=== PATIENT | female | born 1960 | race Caucasian/White ===

== ENCOUNTER 2018-11-03 06:07 | Day surgery (SDC) | payer OTHER ==
[2018-11-02 14:47] VITALS: BMI 34.3
[2018-11-03] MEDS ORDERED: Lidocaine 1% w/Epinephrine 1:100K 20 ML VIAL ONE (14:14)
[2018-11-03] MEDS ORDERED: Fentanyl 100 MCG/2 ML VIAL ONE (14:17)
[2018-11-03] MEDS ORDERED: Famotidine/PF 20 mg/2ml Vial ONE (14:17)
[2018-11-03] MEDS ORDERED: Midazolam HCl 2 mg/2 ml Vial ONE (14:17)
[2018-11-03] MEDS ORDERED: PROPOFOL 60 ML ONE (14:17)
[2018-11-03] MEDS ORDERED: Ferric Subsulfate (ASTRINGYN) 8 ML VIAL ONE (15:14)
--- NOTE | 2018-11-03 21:10 | OP ---
DATE OF PROCEDURE: 11/03/2018 PREOPERATIVE DIAGNOSIS: High-grade squamous intraepithelial lesion. POSTOPERATIVE DIAGNOSIS: High-grade squamous intraepithelial lesion. PROCEDURE PERFORMED: Cold knife cone. PICK UP ATTENDANT SURGEON: None. ANESTHESIA: TIVA. ESTIMATED BLOOD LOSS: 5 mL. IVF: 1 L of crystalloid. URINE OUTPUT: 25 mL of clear urine at the beginning. SPECIMEN: Cone biopsy marked at 12 o'clock. COMPLICATIONS: None. DRAINS: None. FINDINGS: Acetowhite staining after application of acetic acid around the squamocolumnar junction and going into the endocervical canal. At the conclusion, excellent hemostasis was noted. OPERATIVE TECHNIQUE: The patient was taken to the operating room, where IV anesthesia was obtained without difficulty. The patient was prepped and draped in a sterile fashion in dorsal lithotomy position. A weighted speculum was placed in the anterior retraction with a Ronald retractor was placed and a paracervical block of 1% lidocaine with epi 20 mL was placed around the cervix. Stay sutures of 0 Vicryl were placed at 3 and 9 o'clock. Acetic acid was applied to the cervix and the acetowhite areas were noted. blade was used to cut a cone specimen circumferentially and this specimen was marked at 12 o'clock with a Vicryl suture. The rollerball cautery was used to achieve hemostasis. Stur[place]orf compression sutures of 0 Vicryl were placed on the anterior and posterior cervical lips and Monsel's was placed over this and the stay sutures were then tied in the midline and cut. All instruments were removed out of the vagina. The patient tolerated the procedure well. Sponge and needle counts were correct x2. The patient was taken to recovery in stable condition. The patient received Ancef 2 g for the procedure. Job ID: [id number]
== END 2018-11-03 17:05 ==
LOC: SDC 06:07
PROVIDERS: ATTEND Student in an Organized Health Care Education/Training Program
PROC: 0UBC7ZZ Excision of Cervix, Via Natural or Artificial Opening (ICD-10-PCS; principal; 2018-11-03)
DX: R87.613 High grade squamous intraepithelial lesion on cytologic smear of cervix (HGSIL) (principal)
CPT/HCPCS: 36415; 86850; 86900; 86901; J0690; J2001; J2250; J2704; J3010; S0028